=== PATIENT | female | born 1960 | race Asian ===

== ENCOUNTER 2017-05-29 06:43 | Day surgery (SDC) | payer OTHER ==
[~2017-05-29] VITALS: Ht 152.4 cm; Wt 43.6 kg
[~2017-05-29 06:43] MED LIST: ALBU8.5H8 IH; DOXY50CA7 PO; FAMO20 PO; FLUT16H NASAL; MONT10TA21 PO; PRED10 PO
[2017-05-29] MEDS ORDERED: ALBUTEROL SULFATE 2.5 MG/0.5 ML NEB SOLUTION NEB ONE (06:44)
[2017-05-29] MEDS ORDERED: BENZOCAINE 20% 50 MCG/SPRAY 57 GM TP ONE (06:44)
[2017-05-29] MEDS ORDERED: LIDOCAINE HCL 4% 50 ML SOLUTION TP ONE (06:44)
[2017-05-29] MEDS ORDERED: LIDOCAINE HCL 2% 30 ML JELLY TP ONE (06:44)
[2017-05-29] MEDS ORDERED: SODIUM CHLORIDE 0.9% 1,000 ML IV ONE ×2 (07:00→07:04)
[2017-05-29] MEDS ORDERED: P-EP-31 PO (07:13)
[2017-05-29] MEDS ORDERED: MOME13HF IH (07:13)
[2017-05-29] MEDS ORDERED: CETI-290 PO (07:13)
[2017-05-29] MEDS ORDERED: FAMO20 PO (07:13)
[2017-05-29] MEDS ORDERED: MIDAZOLAM HCL 2 MG/2 ML VIAL ONE (07:53)
[2017-05-29] MEDS ORDERED: FentaNYL CITRATE-PF 100 MCG/2 ML VIAL ONE (07:53)
[2017-05-29] MEDS ORDERED: MethylPREDNISolone SOD SUCC 125 MG/2 ML VIAL IVP ONE (09:00)
[2017-05-29] MEDS ORDERED: MethylPREDNISolone SOD SUCC 125 MG/2 ML VIAL ONE (09:23)
[2017-05-29] MEDS ORDERED: OXYGEN THERAPY IH SCH (20:00)
== END 2017-05-29 10:25 | disposition home or self-care (01) ==
LOC: SURGERY 06:43
PROVIDERS: ATTEND Internal Medicine Critical Care Medicine
DX: J38.4 Edema of larynx (principal); B37.0 Candidal stomatitis; J84.111 Idiopathic interstitial pneumonia, not otherwise specified; J47.9 Bronchiectasis, uncomplicated; Z52.4 Kidney donor; Z79.899 Other long term (current) drug therapy
CPT/HCPCS: 31623; 31624; 71045; 87015; 87070; 87077; 87147; 87186; 87205; 87220; 88108; 88184; 88185; 88312; J2250; J2930; J3010; J7030

== ENCOUNTER 2018-08-13 06:36 | Day surgery (SDC) | payer OTHER ==
[~2018-08-13] VITALS: Ht 152.4 cm; Wt 42.7 kg
[~2018-08-13 06:36] MED LIST changes: +CETI10TA59 PO; -DOXY50CA7 PO; +MOME13HF IH; -MONT10TA21 PO; +P-EP-31 PO; -PRED10 PO; +SODIUM CHLORIDE 0.9% 1,000 ML IV ONE
[2018-08-13] MEDS ORDERED: LIDOCAINE 2% 30 ML JELLY TP ONE (06:37)
[2018-08-13] MEDS ORDERED: BENZOCAINE 20% 50 MCG/SPRAY 57 GM TP ONE (06:37)
[2018-08-13] MEDS ORDERED: ALBUTEROL SULFATE 2.5 MG/0.5 ML NEB SOLUTION NEB ONE (06:37)
[2018-08-13] MEDS ORDERED: SODIUM CHLORIDE 0.9% 1,000 ML IV ONE (07:00)
[2018-08-13] MEDS ORDERED: MIDAZOLAM HCL 2 MG/2 ML VIAL ONE (07:33)
[2018-08-13] MEDS ORDERED: FentaNYL CITRATE-PF 100 MCG/2 ML VIAL ONE (07:33)
[2018-08-13] MEDS ORDERED: PRED5 PO (07:41)
[2018-08-13] MEDS ORDERED: MONT10TA21 PO (07:41)
[2018-08-13] MEDS ORDERED: MethylPREDNISolone SOD SUCC 125 MG/2 ML VIAL IVP ONE (09:30)
== END 2018-08-13 10:40 | disposition home or self-care (01) ==
LOC: SURGERY 06:36
PROVIDERS: ATTEND Internal Medicine Critical Care Medicine
DX: J38.4 Edema of larynx (principal); B37.0 Candidal stomatitis; Z88.8 Allergy status to other drugs, medicaments and biological substances; Z79.52 Long term (current) use of systemic steroids
CPT/HCPCS: 31623; 31624; 71045; 87015; 87070; 87101; 87205; 87206; 87220; 88108; 88312; J2250; J2930; J3010; J7030

== ENCOUNTER 2020-09-21 05:50 | Day surgery (SDC) | payer OTHER ==
[~2020-09-21] VITALS: Ht 152.4 cm; Wt 45.9 kg
[~2020-09-21 05:50] MED LIST changes: -ALBU8.5H8 IH; -CETI10TA59 PO; +MONT-35 PO; +PRED-409 PO; -SODIUM CHLORIDE 0.9% 1,000 ML IV ONE
[2020-09-21] MEDS ORDERED: SODIUM CHLORIDE 0.9% 1,000 ML ONE (06:05)
[2020-09-21 06:22] LABS: COVID AG,FIA SOURCE NASOPHARYNGEAL
[2020-09-21] MEDS ORDERED: ALBU8HFA IH (06:27)
[2020-09-21] MEDS ORDERED: DOXY75CA5 PO (06:27)
[2020-09-21] MEDS ORDERED: BENZ-70 PO (06:27)
[2020-09-21] MEDS ORDERED: SODIUM CHLORIDE 0.9% 1,000 ML IV ONE (06:30)
[2020-09-21] MEDS ORDERED: FentaNYL CITRATE PF 100 MCG/2 ML VIAL ONE (07:47)
[2020-09-21] MEDS ORDERED: MIDAZOLAM HCL 2 MG/2 ML VIAL ONE (07:47)
[2020-09-21] MEDS ORDERED: MethylPREDNISolone SOD SUCC 125 MG/2 ML VIAL ONE (08:43)
[2020-09-21] MEDS ORDERED: MethylPREDNISolone SOD SUCC 125 MG/2 ML VIAL IVP ONE (08:45)
[2020-09-21] MEDS ORDERED: BENZOCAINE 20% 50 MCG/SPRAY 57 GM ONE (16:24)
[2020-09-21] MEDS ORDERED: ALBUTEROL SULFATE 2.5 MG/0.5 ML NEB SOLUTION NEB ONE (16:24)
[2020-09-21] MEDS ORDERED: LIDOCAINE 2% 30 ML JELLY ONE (16:24)
[2020-09-21] MEDS ORDERED: OXYGEN THERAPY IH SCH (20:00)
== END 2020-09-21 10:11 | disposition home or self-care (01) ==
LOC: SURGERY 05:50
PROVIDERS: ATTEND Internal Medicine Critical Care Medicine
DX: J38.4 Edema of larynx (principal); B37.0 Candidal stomatitis; Z98.890 Other specified postprocedural states
CPT/HCPCS: 31623; 31624; 71045; 87015; 87070; 87077; 87101; 87205; 87206; 87220; 87426; 88108; 88184; 88185; 88312; 93005; C9803; J2250; J2930; J3010; J7030; 87186; J7613

== ENCOUNTER 2023-02-15 05:47 | Day surgery (SDC) | payer OTHER ==
[~2023-02-15] VITALS: Ht 152.4 cm; Wt 40.0 kg
[~2023-02-15 05:47] MED LIST changes: +ALBU18HF12 IH; +ALEN35TA53 PO; +BENZ-227 PO; +DICL100G60 TP; -FAMO20 PO; +FAMO20TA8 PO; -FLUT16H NASAL; +FLUT16SP NASAL; +GABA-1181 PO; +LATA2.5D14 OU; -MOME13HF IH; +MOME13HF11 IH; -MONT-35 PO; +MONT-40 PO; -P-EP-31 PO; -PRED-409 PO; +PRED-729 PO
[2023-02-15] MEDS ORDERED: BENZOCAINE 20% 50 MCG/SPRAY 57 GM TP ONE (05:48)
[2023-02-15] MEDS ORDERED: LIDOCAINE 2% 11 ML JELLY TP ONE (05:48)
[2023-02-15] MEDS ORDERED: LIDOCAINE 4% 50 ML SOLUTION TP ONE (05:48)
[2023-02-15] MEDS ORDERED: ALBUTEROL SULFATE 2.5 MG/0.5 ML NEB SOLUTION NEB ONE (05:48)
[2023-02-15] MEDS ORDERED: SODIUM CHLORIDE 0.9% 0 ML ONE (06:37)
[2023-02-15] MEDS ORDERED: FentaNYL CITRATE PF 100 MCG/2 ML VIAL ONE (07:17)
[2023-02-15] MEDS ORDERED: MIDAZOLAM HCL 2 MG/2 ML VIAL ONE (07:17)
[2023-02-15] MEDS ORDERED: SODIUM CHLORIDE 0.9% 1,000 ML ONE (08:21)
[2023-02-15] MEDS ORDERED: SODIUM CHLORIDE 0.9% 1,000 ML IV ONE (09:00)
[2023-02-15] MEDS ORDERED: MethylPREDNISolone SOD SUCC 125 MG/2 ML VIAL IVP ONE (09:00)
[2023-02-15 09:09] VITALS: PULSE 102; RESP 17; O2SAT 98
== END 2023-02-15 11:35 | disposition short-term general hospital (02) ==
LOC: SURGERY 05:47
PROVIDERS: ATTEND Internal Medicine Critical Care Medicine
DX: J38.4 Edema of larynx (principal); B37.0 Candidal stomatitis; Z88.8 Allergy status to other drugs, medicaments and biological substances; Z98.890 Other specified postprocedural states; Z79.899 Other long term (current) drug therapy; Z87.01 Personal history of pneumonia (recurrent)
CPT/HCPCS: 31623; 88112; 87206; 87101; 87220; 87070; 87186; 31624; 94640; 71045; 87015; J3010; J2250; J2930; Q9967; J7030; J7613; Z7610